=== PATIENT | female | born 2000 | race Caucasian/White ===

== ENCOUNTER → 2021-11-13 | Outpatient (CLI) | payer BC ==
[~2021-11-13] MED LIST: PHENERGAN 25 TA25 MG PO
== END ==
LOC: COL.RAD 11:07
DX: R10.11 Right upper quadrant pain (principal)

== ENCOUNTER 2021-11-15 09:55 | Emergency (ER) | payer BC ==
[~2021-11-15] VITALS: Ht 157.5 cm; Wt 50.0 kg
[2021-11-15 10:00] VITALS: TEMP 97.6
[2021-11-15 10:40] LABS: BASO % 0.5 % (0.0-2.0); EOS # 0.1 K/mm3 (0.0-0.7); EOS % 0.8 % (0.0-4.0); GRAN # 4.3 K/mm3 (1.4-6.5); GRAN % 69.5 % (42.2-75.2); HEMATOCRIT 46.1 % (37.0-47.0); HEMOGLOBIN 15.4 g/dl (12.5-16.0); LYMPH # 1.2 K/mm3 (1.2-3.4); LYMPH % 19.8 % (20.0-51.0); MEAN CELL VOLUME 92 fl (80.0-100.0); MEAN CORPUSCULAR HEMOGLOBIN 31 pg (27-31); MEAN CORPUSCULAR HGB CONC 33 g/dl (33.0-37.0); MONO # 0.6 K/mm3 (0.1-0.6); MONO % 9.1 % (1.7-9.3); PLATELET COUNT 264 K/mm3 (130-400); RED BLOOD COUNT 4.99 M/mm3 (4.10-5.30)
[2021-11-15 10:57] LABS: ALANINE AMINOTRANSFERASE 9 U/L (0-55); ALBUMIN 5.2 gm/dL (3.5-5.0); ALKALINE PHOSPHATASE 56 U/L (40-150); ANION GAP 12 mmol/L (7-16); AST,SGOT 12 U/L (5-34); BILIRUBIN,TOTAL 1.1 mg/dL (0.2-1.2); BLOOD UREA NITROGEN 15 mg/dL (7-19); CALCIUM 10.1 mg/dL (8.4-10.2); CARBON DIOXIDE 24 mmol/L (22-29); CHLORIDE 104 mmol/L (98-107); CREATININE, serum 0.97 mg/dL (0.57-1.11); GLUCOSE 94 mg/dL (70-99); LIPASE 42 U/L (8-78); SODIUM 140 mmol/L (136-145); TOTAL PROTEIN 8.8 gm/dL (6.2-8.1)
[2021-11-15 10:59] LABS: C-REACTIVE PROTEIN < 0.02 mg/dL (0.00-0.50)
[2021-11-15 11:52] LABS: COLLECTION METHOD CLEAN CATCH
[2021-11-15 12:14] LABS: URINE APPEARANCE Clear (CLEAR/HAZY); URINE COLOR Yellow (YELLOW)
[2021-11-15 12:15] LABS: PH 6 (5-8); URINE BILIRUBIN Negative (NEGATIVE); URINE BLOOD Negative (NEGATIVE); URINE GLUCOSE Negative (NEGATIVE); URINE KETONE Trace (NEGATIVE); URINE LEUKOCYTE ESTERASE Negative (NEGATIVE); URINE NITRATE Negative (NEGATIVE); URINE PROTEIN(semi-quant) Negative (NEGATIVE); URINE UROBILINOGEN Negative (NEGATIVE)
[2021-11-15 12:17] LABS: MUCOUS Present (NOT PRESENT); SQUAMOUS EPITHELIAL 0-2 /hpf (0-10); URINE BACTERIA None Seen /hpf (NONE SEEN); URINE RBC 0-2 /hpf (0-2)
[2021-11-15] MEDS ORDERED: PHENERGAN 25 TA25 MG PO (12:36)
[2021-11-15 12:49] VITALS: BP 111/60; PULSE 66
== END 2021-11-15 13:00 | disposition home or self-care (01) ==
LOC: COL.ER 09:55
PROVIDERS: Nurse Practitioner
DX: R10.11 Right upper quadrant pain (principal); R11.2 Nausea with vomiting, unspecified; Z32.02 Encounter for pregnancy test, result negative
CPT/HCPCS: J2550; J7030; Q9967

== ENCOUNTER → 2021-12-06 | Outpatient (CLI) | payer BC | LOC: COL.RAD 06:33 | DX: R10.11 Right upper quadrant pain (principal); R11.2 Nausea with vomiting, unspecified; R63.4 Abnormal weight loss | CPT/HCPCS: A9537 ==

== ENCOUNTER 2024-02-02 04:43 | Inpatient (IN) | payer BC, MEDICAID ==
[2024-02-02] VITALS (18 sets, daily range): BP systolic 95–120; BP diastolic 50–81; PULSE 60–83; TEMP 97.6–98.4
[~2024-02-02] VITALS: Ht 157.5 cm; Wt 74.1 kg
[~2024-02-02 04:43] MED LIST changes: +IBU800 M1 PO; +PEPCID 20MG TAB20 MG PO; +PRENATAL TABLET PO; +ZOFRAN 4MG T4 MG/TAB PO
--- NOTE | 2024-02-02 04:52 | NUR ---
PT PRESENTS TO L&D WITH C/O CONTRACTIONS SINCE 299. PT TO BED, MONITORS ON, SVE /0. SMALL AMT BLOODY SHOW NOTED ON GLOVE.MEMBRANES INTACT. PT MOANING WITH CTX'S AND BREATHING THROUGH THEM. 500 DR AZUL CONSTRUCTION OPERATIONS MANAGER NOTIFIED PT IS HERE AND HER COMPLAINTS, REQUESTS AN EPIDURAL. ORDERS TO ADMIT, START IV AND PT CAN HAVE EPIDURAL WHEN SHE WANTS IT.
[2024-02-02] MEDS ORDERED: LR & Oxytocin 500 ML IV SCH (05:15)
[2024-02-02] MEDS ORDERED: LR 1,000 ML IV SCH (05:15)
[2024-02-02 05:42] LABS: BASO % 0.4 % (0.0-2.0); EOS # 0.1 K/mm3 (0.0-0.7); EOS % 0.6 % (0.0-4.0); GRAN # 7.7 K/mm3 (1.4-6.5); GRAN % 69.1 % (42.2-75.2); HEMOGLOBIN 12.6 g/dl (12.5-16.0); LYMPH # 2.4 K/mm3 (1.2-3.4); LYMPH % 21.4 % (20.0-51.0); MEAN CELL VOLUME 94 fl (80.0-100.0); MEAN CORPUSCULAR HEMOGLOBIN 32 pg (27-31); MEAN CORPUSCULAR HGB CONC 35 g/dl (33.0-37.0); MEAN PLATELET VOLUME 11.7 fl (7.4-10.4); MONO # 0.9 K/mm3 (0.1-0.6); MONO % 7.6 % (1.7-9.3); PLATELET COUNT 158 K/mm3 (130-400); REDCELL DISTRIBUTION WIDTH-CV 13.1 % (11.5-14.5)
[2024-02-02 05:53] LABS: HEMATOCRIT 36.5 % (37.0-47.0)
--- NOTE | 2024-02-02 05:54 | NUR ---
ISMA MERAZ HERE TO PLACE EPIDURAL. PT SITTING UP ON THE SIDE OF THE BED. 0600 SINGLE SHOT DONE.
[2024-02-02] MEDS ORDERED: ROPivacaine PF 0.2% 200 ML IV ONE (06:06)
[2024-02-02] MEDS ORDERED: Naloxone 0.4 MG/ML VIAL IV PRN ×2 (06:15→08:00)
[2024-02-02] MEDS ORDERED: diphenhydrAMINE 50 MG/ML 1 ML VIAL IV PRN (06:15)
[2024-02-02] MEDS ORDERED: Ondansetron 4 MG/2 ML VIAL IV PRN (06:15)
[2024-02-02] MEDS ORDERED: diphenhydrAMINE 25 MG CAP PO PRN (06:15)
[2024-02-02] MEDS ORDERED: ePHEDrine 50 MG/10 ML VIAL IV PRN (06:15)
--- NOTE | 2024-02-02 06:15 | NUR ---
PATIENT CARE RECEIVED FROM MIKE PEARL RN.
[2024-02-02] MEDS ORDERED: TUMS500 MG (06:40)
[2024-02-02] MEDS ORDERED: ZYRTEC ALLERGY10 MG PO (06:41)
--- NOTE | 2024-02-02 07:33 | NUR ---
0700 SVE BY THIS RN 0. NOTIFIED. 0721 MD AT BEDSIDE. FHR TRACING REVIEWED. PLAN OF CARE UPDATED. AROM 0721. MEC STAINED FLUID. PUSHING INITIATED WITH RN 0726 MD AT BEDSIDE. PATIENT SETUP FOR VAGINAL DELIVERY. 0730 EPISIOTOMY CUT BY 0733 OF VIABLE FEMALE . PLACED ON MOTHER'S ABDOMEN. CARE OF INFANT GIVEN TO NURSERY RN. 0740 PATIENT STRAIGHT CATHED BY7 DR. ARGUELLO 200 URINE OUT 0741 OF PLACENTA. PITOCIN BOLUS INTITIATED AT 333ML/HR PER POLICY AND PROTOCOL. REPAIR OF EPISOTOMY BY DR. ARGUELLO. 0753 METHERGINE GIVEN IM BY THIS RN PER ORDERS. FUNDUS FIRM AND BLEEDING WNL.
[2024-02-02] MEDS ORDERED: Phenylephrine/Mineral Oil/Petrolatum 57 GM TUBE RC PRN (08:00)
[2024-02-02] MEDS ORDERED: Mag/Al Hydrox/Simeth Susp 30 ML CUP PO PRN (08:00)
[2024-02-02] MEDS ORDERED: Loratadine 10 MG TAB PO PRN (08:00)
[2024-02-02] MEDS ORDERED: Measles/Mumps/Rubella Virus Vaccine Live w Diluent 0.5 ML VIAL SQ SCH (08:00)
[2024-02-02] MEDS ORDERED: Sennosides/Docusate 8.6-50 MG TAB PO SCH (08:00)
[2024-02-02] MEDS ORDERED: Witch Hazel 50% Pads Bulk TUB TP PRN (08:00)
[2024-02-02] MEDS ORDERED: Magnes Hydrox (MOM) 80 MG/ML 30 ML CUP PO PRN (08:00)
[2024-02-02] MEDS ORDERED: Acetaminophen 500 MG TAB PO SCH (08:30)
[2024-02-02] MEDS ORDERED: Ibuprofen 800 MG TAB PO SCH (08:30)
[2024-02-02] MEDS ORDERED: Methylergonovine 0.2 MG/ML 1 ML AMPUL IM ONE (09:00)
[2024-02-02] MEDS ORDERED: Cetirizine 10 MG TAB PO SCH (09:00)
[2024-02-02] MEDS ORDERED: Prenatal Vitamins/Iron/FA TAB PO SCH (09:00)
--- NOTE | 2024-02-02 09:40 | NUR ---
PATIENT ABLE TO RAISE AND HOLD RIGHT LEG OFF BED. CAN ONLY WIGGLE TOES ON LEFT FOOT.
--- NOTE | 2024-02-02 11:30 | NUR ---
PATIENT UP TO BATHROOM WITH STAND BY ASSIST BY RN AFTER ABLE TO HOLD BOTH LEGS OFF BED FOR 4 SECONDS. PERICARE INSTRUCTIONS REVIEWED. PAD, TUCKS, AND ICE PACK APPLIED. PATIENT AMBULATES TO ROOM 214.
[2024-02-02] MEDS ORDERED: traZODone 50 MG TAB PO PRN (21:00)
[2024-02-03 01:00] VITALS: BP 107/68; PULSE 76; TEMP 98
[2024-02-03 08:15] VITALS: BP 105/69; PULSE 81; TEMP 97.8
--- NOTE | 2024-02-03 10:37 | NUR ---
Initial visit attempt; Physician and Nurse with patient. Lead Clinical Research Coordinator left card offering congratulations and God's blessings for the of their daughter and information regarding the availability of Spiritual Care at our hospital.
--- NOTE | 2024-02-03 14:00 | NUR ---
discharge education completed, health history given, discharge appointment discussed. patient verbalizes understanding. questions invited and answered.
== END 2024-02-03 14:40 | disposition home or self-care (01) | DRG 560 ==
LOC: LDRO 04:43 → LDR 05:11 → OB 12:04
PROVIDERS: Obstetrics & Gynecology; ADMIT Obstetrics & Gynecology
PROC: 10E0XZZ Delivery of Products of Conception, External Approach (ICD-10-PCS; principal; 2024-02-02)
PROC: 0W8NXZZ Division of Female Perineum, External Approach (ICD-10-PCS; 2024-02-02)
DX: O99.354 Diseases of the nervous system complicating childbirth (principal); Z37.0 Single live birth; G90.2 Horner's syndrome; O99.62 Diseases of the digestive system complicating childbirth; K31.84 Gastroparesis; O77.0 Labor and delivery complicated by meconium in amniotic fluid; Z3A.39 39 weeks gestation of pregnancy
CPT/HCPCS: J2210; J2590; J2795; J7120